=== PATIENT | female | born 1980 | race Caucasian/White ===

== ENCOUNTER 2021-08-30 12:04 | Outpatient (CLI) | payer OTHER, SELFPAY ==
--- NOTE | 2021-08-30 12:00 | MM_ITS ---
WS: [id number] BILATERAL DIGITAL DIAGNOSTIC MAMMOGRAM MAMMOGRAPHY WITH CAD CLINICAL INFORMATION: N63.0 - Unspecified lump in unspecified breast. Right breast lump. TECHNIQUE: Bilateral CC, MLO, and ML views. FINDINGS: The breasts are composed of heterogeneous fibroglandular density, which can limit the detection of sm all underlying mass lesions. Palpable marker lower inner right breast. No underlying parenchymal abno rmalities. Ultrasound is pending. Left breast appears unremarkable. ULTRASOUND BREAST RIGHT TECHNIQUE: Ultrasound right breast focused area of concern. CLINICAL INFORMATION: N63.0 - Unspecified lump in unspecified breast COMPARISON: None. FINDINGS: Ultrasound right breast in the area of palpable concern 3 and 4:00 3 cm from the nipple. Normal under lying breast parenchymal tissue. No cystic or solid lesions. No suspicious lesions to target for biop sy. MM/[place] [id number] IMPRESSION: BI-RADS: 2-Benign FOLLOW UP: 1 Year Follow-up Recommend return to annual screening mammography.
--- NOTE | 2021-08-30 12:11 | US_ITS ---
WS: [id number] BILATERAL DIGITAL DIAGNOSTIC MAMMOGRAM MAMMOGRAPHY WITH CAD CLINICAL INFORMATION: N63.0 - Unspecified lump in unspecified breast. Right breast lump. TECHNIQUE: Bilateral CC, MLO, and ML views. FINDINGS: The breasts are composed of heterogeneous fibroglandular density, which can limit the detection of sm all underlying mass lesions. Palpable marker lower inner right breast. No underlying parenchymal abno rmalities. Ultrasound is pending. Left breast appears unremarkable. ULTRASOUND BREAST RIGHT TECHNIQUE: Ultrasound right breast focused area of concern. CLINICAL INFORMATION: N63.0 - Unspecified lump in unspecified breast COMPARISON: None. FINDINGS: Ultrasound right breast in the area of palpable concern 3 and 4:00 3 cm from the nipple. Normal under lying breast parenchymal tissue. No cystic or solid lesions. No suspicious lesions to target for biop sy. US/US breast RT limited* [id number] IMPRESSION: BI-RADS: 2-Benign FOLLOW UP: 1 Year Follow-up Recommend return to annual screening mammography.
== END 2021-08-30 12:05 | disposition home or self-care (01) ==
LOC: RADSHAW 12:09
PROVIDERS: PCP Nurse Practitioner Family; Visit Provider Nurse Practitioner Family
DX: N63.10 Unspecified lump in the right breast, unspecified quadrant (principal)
CPT/HCPCS: 76642; 77066

== ENCOUNTER → 2021-11-03 10:40 | Outpatient (BNVA) | payer OTHER, SELFPAY | PROVIDERS: PCP Nurse Practitioner Family; Visit Provider Nurse Practitioner Family | DX: N39.0 Urinary tract infection, site not specified (principal) | CPT/HCPCS: 81003; 87086 ==

== ENCOUNTER → 2021-12-22 13:27 | Outpatient (BNVA) | payer OTHER, SELFPAY | PROVIDERS: PCP Nurse Practitioner Family; Visit Provider Nurse Practitioner Women's Health | DX: N92.6 Irregular menstruation, unspecified (principal); A60.00 Herpesviral infection of urogenital system, unspecified | CPT/HCPCS: 81025 ==

== ENCOUNTER → 2021-12-29 11:31 | Outpatient (BNVA) | payer OTHER, SELFPAY | PROVIDERS: PCP Nurse Practitioner Family; Visit Provider Nurse Practitioner Women's Health | DX: O20.9 Hemorrhage in early pregnancy, unspecified (principal); O36.80X1 Pregnancy with inconclusive fetal viability, fetus 1; Z3A.00 Weeks of gestation of pregnancy not specified | CPT/HCPCS: 84702; 85025; 86850; 86900 ==

== ENCOUNTER 2022-01-03 07:16 | Outpatient (CLI) | payer OTHER, SELFPAY | END 2022-01-03 07:17 | disposition home or self-care (01) | PROVIDERS: PCP Nurse Practitioner Family; Visit Provider Nurse Practitioner Women's Health | DX: O36.80X0 Pregnancy with inconclusive fetal viability, not applicable or unspecified (principal) | CPT/HCPCS: 84702 ==

== ENCOUNTER → 2022-01-11 08:42 | Outpatient (BNVA) | payer OTHER, SELFPAY | PROVIDERS: PCP Nurse Practitioner Family; Referring Provider Nurse Practitioner Family; Visit Provider Podiatrist Foot & Ankle Surgery | DX: L60.8 Other nail disorders (principal); M20.41 Other hammer toe(s) (acquired), right foot | CPT/HCPCS: 99203; 99204 ==